=== PATIENT | female | born 1995 | race Caucasian/White ===

== ENCOUNTER 2019-10-28 23:27 | Inpatient (IN) ==
[2019-10-28] MEDS ORDERED: MEPERIDINE 50 MG/1 ML VIAL IV PRN (23:36)
[2019-10-28] MEDS ORDERED: BUTORPHANOL 2 MG/ML VIAL IV PRN (23:36)
[2019-10-28] MEDS ORDERED: ONDANSETRON 4 MG/2 ML VIAL IV PRN (23:36)
[2019-10-29 00:40] LABS: Basophils % 0.2 % (0.0-0.8); Eosinophils # 0.1 10*3/uL (0.0-0.87); Eosinophils % 1.1 % (0.00-10.9); Hematocrit 33.6 VOL% (35.7-47.0); Hemoglobin 11.1 GM/DL (12.0-16.0); Immature Granulocytes % 1.5 %; Immature Granulocytes Absolute 0.13 #; Lymphocytes % 23.4 % (21.3-54.2); Mean Corpuscular Volume 92.1 FL (87-102); Mean Platelet Volume 12.6 FL (9.6-12.0); Monocytes % 6.8 % (1.7-12.7); Platelet Count 153 T/CUMM (130-400); Red Blood Count 3.65 MC/CUMM (3.8-5.5); Red Cell Distribution Width 13.6 % (9.3-17.3); White Blood Count 8.5 T/CUMM (4-12)
[2019-10-29] MEDS: LACTATED RINGERS 1,000 ML IV SCH ×2 (00:46→11:16)
[2019-10-29 01:33] LABS: INR 0.9; PT Patient Result 9.3 SECS (9.8-11.9); Partial Thromboplastin Time 27.1 SECS (23.9-33.8)
[2019-10-29 02:43] LABS: Alanine Aminotransferase 24 U/L (13-56); Albumin 2.6 G/DL (3.4-5.0); Alkaline Phosphatase 172 U/L (45-117); Aspartate Amino Transferase 23 U/L (0-37); Bilirubin,Total < 0.39 MG/DL (0.2-1.0); Blood Urea Nitrogen 10 MG/DL (7-18); Calcium 8.8 MG/DL (8.5-10.1); Estimated Glom Filtration Rate 138 ML/MIN; Glucose 92 MG/DL (74-106); Osmolality,Calculated 273.7 MOS/KG (273-304); Total Protein 6.2 G/DL (6.4-8.3)
[2019-10-29] MEDS: LABETALOL 100 MG TABLET PO SCH ×3 (09:03→23:53)
[2019-10-29] MEDS ORDERED: NALOXONE 0.4 MG/ML VIAL IV PRN (10:21)
[2019-10-29] MEDS ORDERED: ePHEDrine 50 MG/ML VIAL IV PRN (10:21)
[2019-10-29] MEDS ORDERED: FAMOTIDINE 20 MG/2 ML VIAL IV ONE (10:21)
[2019-10-29] MEDS ORDERED: LACTATED RINGERS 1,000 ML IV ONE (10:21)
[2019-10-29] MEDS ORDERED: diphenhydrAMINE 50 MG/1 ML VIAL IV PRN ×2 (10:21)
[2019-10-29] MEDS ORDERED: CITRIC ACID/SODIUM CITRATE 30 ML UDCUP PO ONE (10:21)
[2019-10-29] MEDS ORDERED: fentaNYL 2 MCG/ROPIV 0.2% EPID 100 ML EPIDURAL SCH (10:30)
[2019-10-29 12:29] LABS: Apearance,Urine CLEAR (Clear); Bilirubin,Urine Negative (Negative); Blood, Urine Moderate mg/dL (Negative); Glucose,Urine (UA) Negative (Negative); Ketones,Urine Negative (Negative); Mucus,Urine Occasional /LPF (Occasional); Nitrite,Urine Negative (Negative); Protein,Urine Negative; RBC,Urine 56 /HPF (0-4); Squamous Epithelial Cell,Urine Occasional /HPF (0-10); Urine Color Yellow (Yellow); Urine Specific Gravity 1.016 (1.001-1.035); Urine Urobilinogen < 2.0 EU/DL (0.2-1.0)
[2019-10-29] MEDS ORDERED: OXYTOCIN/LR 20 UNIT/1,000 ML BAG IV SCH (12:30)
[2019-10-29] MEDS ORDERED: miSOPROStoL 200 MCG TABLET ONE (12:35)
[2019-10-29] MEDS ORDERED: CARBOPROST TROMETHAMINE 250 MCG/ML AMP IM ONE (12:36)
[2019-10-29] MEDS ORDERED: ACETAMINOPHEN 325 MG TABLET PO PRN (15:16)
[2019-10-29] MEDS ORDERED: DIPH/TET/ACEL PERT BOOSTER VACCINE 0.5 ML VIAL IM ONE (15:16)
[2019-10-29] MEDS ORDERED: MEASLES/MUMPS/RUBELLA VACCINE 0.5 ML VIAL SUBCUT ONE (15:16)
[2019-10-29] MEDS ORDERED: ONDANSETRON 4 MG/2 ML VIAL IV PRN (15:16)
[2019-10-29] MEDS ORDERED: oxyCODONE/ACETAMINOPHEN 5-325 MG TABLET PO PRN ×2 (15:16)
[2019-10-29] MEDS ORDERED: BISACODYL 10 MG SUPP RECTAL PRN (15:16)
[2019-10-29] MEDS ORDERED: RHO(D) IMMUNE GLOBULIN 300 MCG SYRINGE IM ONE (15:16)
[2019-10-29] MEDS ORDERED: HYDROCORTISONE 2.5% RECTAL CREAM 30 GM TUBE TOP PRN (15:16)
[2019-10-29] MEDS ORDERED: IBUPROFEN 800 MG TABLET PO PRN (15:16)
[2019-10-29] MEDS ORDERED: LANOLIN 50% CREAM 0.3 OZ TUBE TOP PRN (15:16)
[2019-10-29] MEDS ORDERED: OXYTOCIN/LR 20 UNIT/1,000 ML BAG IV ONE (15:16)
[2019-10-29 15:23] LABS: Cord Venous Blood HCO3 21.3 MMOL/L; Cord Venous Blood PCO2 49.9 MMHG
[2019-10-29 15:24] LABS: Cord Venous Blood PO2 16.9
[2019-10-29 15:26] LABS: Cord Arterial Blood HCO3 20.6 MMOL/L
[2019-10-29] MEDS: WITCH HAZEL PADS 100/JAR TOP PRN (18:32)
[2019-10-29] MEDS: BENZOCAINE 20%/MENTHOL 0.5% SPRAY 56 GM CAN TOP PRN (18:32)
[2019-10-29] MEDS: DOCUSATE SODIUM 100 MG CAPSULE PO SCH (21:30)
[2019-10-30 05:36] LABS: Basophils % 0.2 % (0.0-0.8); Eosinophils % 0.2 % (0.00-10.9); Hematocrit 32.1 VOL% (35.7-47.0); Hemoglobin 10.5 GM/DL (12.0-16.0); Immature Granulocytes % 0.6 %; Immature Granulocytes Absolute 0.07 #; Lymphocytes # 1.5 10*3/uL (1.4-4.0); Lymphocytes % 11.8 % (21.3-54.2); Mean Corpuscular HGB Conc 32.7 GM/DL (32-36); Mean Platelet Volume 12.4 FL (9.6-12.0); Monocytes % 5.3 % (1.7-12.7); Neutrophils % 81.9 % (38.7-73.9); Platelet Count 146 T/CUMM (130-400); Red Blood Count 3.45 MC/CUMM (3.8-5.5); Red Cell Distribution Width 13.6 % (9.3-17.3); White Blood Count 12.3 T/CUMM (4-12)
[2019-10-30] MEDS: LABETALOL 100 MG TABLET PO SCH ×2 (08:04→20:35)
[2019-10-30] MEDS: DOCUSATE SODIUM 100 MG CAPSULE PO SCH ×2 (08:04→20:35)
[2019-10-31 08:47] VITALS: BP 138/88
[2019-10-31] MEDS: WITCH HAZEL PADS 100/JAR TOP PRN (10:04)
[2019-10-31] MEDS: BENZOCAINE 20%/MENTHOL 0.5% SPRAY 56 GM CAN TOP PRN (10:04)
[2019-10-31] MEDS: DOCUSATE SODIUM 100 MG CAPSULE PO SCH (10:05)
[2019-10-31] MEDS: LABETALOL 100 MG TABLET PO SCH (10:05)
== END 2019-10-31 14:00 | disposition home or self-care (01) | DRG 807 ==
LOC: N.LDOUT 23:27 → N.LD 23:28 → N.OB 10-29 18:00
PROVIDERS: ADMIT Specialist; ATTEND Specialist